=== PATIENT | female | born 1950 | race Caucasian/White ===

== ENCOUNTER 2018-10-06 13:44 | Day surgery (SDC) | payer MEDICARE, OTHER ==
[~2018-10-06] VITALS: Ht 163.8 cm; Wt 81.8 kg
[~2018-10-06 13:44] MED LIST: OXYC-138 PO
[2018-10-06 14:00] VITALS: BP 140/68
[2018-10-06] MEDS ORDERED: AMLO10TA PO (14:44)
[2018-10-06] MEDS ORDERED: TIZA4CAP PO (14:45)
[2018-10-06] MEDS ORDERED: BENA40TA73 PO (14:46)
[2018-10-06] MEDS ORDERED: CLON0.2T PO (14:46)
[2018-10-06] MEDS ORDERED: FLUO40CA10 PO (14:47)
[2018-10-06] MEDS ORDERED: HYDR-3972 PO (14:48)
[2018-10-06] MEDS ORDERED: CHOLESTEROL MED PO (14:49)
[2018-10-06] MEDS ORDERED: ASPI-12 PO (14:49)
[2018-10-06] MEDS ORDERED: glucagon, human recombinant 1mg kit ONE ×2 (15:18→15:19)
[2018-10-06] MEDS ORDERED: diphenhydrAMINE 50 mg/ml inj ONE (15:18)
[2018-10-06] MEDS ORDERED: LIDOcaine Viscous 15ml cup ONE (15:18)
[2018-10-06] MEDS ORDERED: fentaNYL/PF 50MCG/1 ML 2ML syringe ONE (15:18)
[2018-10-06] MEDS ORDERED: MIDAZolam 5mg/5ml vial ONE (15:18)
[2018-10-06] MEDS ORDERED: iohexol 300 MG/1 ML 50ml polymer ONE (15:19)
[2018-10-06 15:54] VITALS: BP 140/50
[2018-10-06 16:04] VITALS: BP 150/63
[2018-10-06 16:14] VITALS: BP 155/76
[2018-10-06 16:24] VITALS: BP 165/80
[2018-10-06 16:34] VITALS: BP 175/80
== END 2018-10-06 16:54 | disposition home or self-care (01) ==
LOC: GI LAB 13:44
PROVIDERS: ATTEND Internal Medicine Gastroenterology
DX: Z46.59 Encounter for fitting and adjustment of other gastrointestinal appliance and device (principal); K83.8 Other specified diseases of biliary tract; I10 Essential (primary) hypertension; F17.210 Nicotine dependence, cigarettes, uncomplicated; Z90.49 Acquired absence of other specified parts of digestive tract; Z72.89 Other problems related to lifestyle; Z86.69 Personal history of other diseases of the nervous system and sense organs; Z90.710 Acquired absence of both cervix and uterus; Z88.0 Allergy status to penicillin; Z88.5 Allergy status to narcotic agent; Z79.891 Long term (current) use of opiate analgesic; Z79.82 Long term (current) use of aspirin; Z79.899 Other long term (current) drug therapy; Z88.8 Allergy status to other drugs, medicaments and biological substances; Z98.890 Other specified postprocedural states
CPT/HCPCS: 43264; 43275; 74328; G0500; J1200; J1610; J2250; J3010; J7030; Q9967; 43276; 99152; 99153; A4620

== ENCOUNTER 2020-04-07 09:50 | Day surgery (SDC) | payer MEDICARE, MEDICAID ==
[~2020-04-07 09:50] MED LIST changes: +ATOR40TA PO; +CEFD300C3 PO; +DULO-31 PO; +HYDR-4069 PO; +HYDR-4383 PO; +LACT-228 PO; +MAGN64TA10 PO; +METO100T14 PO; +METR-159 PO; -OXYC-138 PO; +POTA20TA19 PO; +TIZA2TAB7 PO
[2020-04-07] MEDS ORDERED: LIDOcaine 2% 5ml jelly ONE (10:35)
== END 2020-04-07 12:13 | disposition home or self-care (01) ==
LOC: WOUND CARE 09:50
PROVIDERS: ATTEND Nurse Practitioner
DX: T81.89XA Other complications of procedures, not elsewhere classified, initial encounter (principal); I10 Essential (primary) hypertension; E78.5 Hyperlipidemia, unspecified; G89.4 Chronic pain syndrome; M54.9 Dorsalgia, unspecified; E87.1 Hypo-osmolality and hyponatremia; E87.6 Hypokalemia; F17.200 Nicotine dependence, unspecified, uncomplicated; F32.9 Major depressive disorder, single episode, unspecified; F41.9 Anxiety disorder, unspecified; Z90.49 Acquired absence of other specified parts of digestive tract; Z98.1 Arthrodesis status; Y92.238 Other place in hospital as the place of occurrence of the external cause; Y83.8 Other surgical procedures as the cause of abnormal reaction of the patient, or of later complication, without mention of misadventure at the time of the procedure
CPT/HCPCS: 97597

== ENCOUNTER 2020-04-13 09:50 | Day surgery (SDC) | payer MEDICARE, MEDICAID ==
[~2020-04-13 09:50] MED LIST changes: -METR-159 PO
[2020-04-13] MEDS ORDERED: LIDOcaine 2% 5ml jelly ONE (10:23)
== END 2020-04-13 11:33 | disposition home or self-care (01) ==
LOC: WOUND CARE 09:50
PROVIDERS: ATTEND Nurse Practitioner
DX: T81.89XD Other complications of procedures, not elsewhere classified, subsequent encounter (principal); L98.492 Non-pressure chronic ulcer of skin of other sites with fat layer exposed; I10 Essential (primary) hypertension; E78.5 Hyperlipidemia, unspecified; G89.4 Chronic pain syndrome; M54.9 Dorsalgia, unspecified; E87.1 Hypo-osmolality and hyponatremia; E87.6 Hypokalemia; F17.200 Nicotine dependence, unspecified, uncomplicated; F32.9 Major depressive disorder, single episode, unspecified; F41.9 Anxiety disorder, unspecified; Z90.49 Acquired absence of other specified parts of digestive tract; Z98.1 Arthrodesis status; Y83.8 Other surgical procedures as the cause of abnormal reaction of the patient, or of later complication, without mention of misadventure at the time of the procedure
CPT/HCPCS: 97597

== ENCOUNTER 2020-04-28 15:04 | Emergency (ER) | payer MEDICARE, MEDICAID ==
[~2020-04-28] VITALS: Ht 134.6 cm; Wt 62.3 kg
[2020-04-28 17:48] LABS: BASOPHILS # (AUTO) 0.1 X10'3 (0-0.2); BASOPHILS % (AUTO) 0.7 % (0-1); EOSINOPHILS # (AUTO) 0.2 X10'3 (0-0.9); EOSINOPHILS % (AUTO) 2.4 % (0-6); HEMATOCRIT 34.8 % (35.0-45.0); HEMOGLOBIN 11.5 g/dl (12.0-16.0); LYMPHOCYTES # (AUTO) 3.4 X10'3 (1.1-4.8); LYMPHOCYTES % (AUTO) 32.6 % (21-51); MEAN CORPUSCULAR HEMOGLOBIN 28.8 PG (27.0-31.0); MEAN CORPUSCULAR HGB CONC 33.2 g/dL (33.0-36.5); MEAN CORPUSCULAR VOLUME 86.9 FL (78-98); MONOCYTES # (AUTO) 0.7 X10'3 (0-0.9); NEUTROPHILS % (AUTO) 57.3 % (42-75); PLATELET COUNT 412 X10'3 (140-440); RED CELL DISTRIBUTION WIDTH 16.6 % (11.5-14.5); WHITE BLOOD COUNT 10.5 X10'3 (4.5-11.0)
[2020-04-28 17:50] VITALS: BP 140/79
[2020-04-28 18:02] LABS: ALANINE AMINOTRANSFERASE 20 U/L (12-78); ALBUMIN 3.5 G/DL (3.4-5.0); ALBUMIN/GLOBULIN RATIO 0.9 (1.1-1.5); ALKALINE PHOSPHATASE 74 IU/L (46-116); ANION GAP 5 (8-16); ASPARTATE AMINO TRANSFERASE 12 U/L (10-37); BILIRUBIN,TOTAL 0.2 MG/DL (0.1-1.0); BLOOD UREA NITROGEN 29 MG/DL (7-18); BUN/CREATININE RATIO 32.6 (6.6-38.0); CALCIUM 9.3 MG/DL (8.5-10.1); CHLORIDE 99 MMOL/L (99-107); CREATININE 0.89 MG/DL (0.40-0.90); GLUCOSE 90 MG/DL (70-104); LIPASE 113 U/L (73-393); POTASSIUM 4.2 MMOL/L (3.5-5.1); SODIUM 132 MMOL/L (135-145); TOTAL CARBON DIOXIDE 27.6 MMOL/L (24-32); TOTAL PROTEIN 7.6 G/DL (6.4-8.2); eGFR 63 ML/MIN
[2020-04-28 18:08] LABS: CLARITY,URINE SLIGHTLY CLOUDY (Clear); COLOR,URINE YELLOW (Yellow); GLUCOSE, URINE NEGATIVE (Neg); KETONES,URINE NEGATIVE (Neg); LEUKOCYTE ESTERASE ,URINE TRACE (Neg); NITRITES, URINE NEGATIVE (Neg); OCCULT BLOOD,URINE NEGATIVE (Neg); PROTEIN,URINE NEGATIVE (Neg); UROBILINOGEN,URINE 0.2 E.U/dL (0.2-1.0)
[2020-04-28 18:09] LABS: UA COLLECTION TYPE CLN CATCH MIDSTREAM
[2020-04-28 18:18] LABS: SQUAMOUS EPITHELIAL CELL,UR MANY /LPF (FEW)
[2020-04-28 18:19] LABS: BACTERIA,URINE FEW /HPF (Neg); RBC,URINE 0-2 /HPF (0-2)
[2020-04-28 18:20] LABS: HYALINE CASTS 0-3 /LPF (NEGATIVE)
== END 2020-04-28 18:53 | disposition home or self-care (01) ==
LOC: ER 15:05
DX: R10.819 Abdominal tenderness, unspecified site (principal); R42 Dizziness and giddiness; I10 Essential (primary) hypertension; Z98.890 Other specified postprocedural states; Z88.0 Allergy status to penicillin; Z88.5 Allergy status to narcotic agent; Z88.8 Allergy status to other drugs, medicaments and biological substances; Z79.899 Other long term (current) drug therapy
CPT/HCPCS: 36415; 80053; 81001; 83690; 85025; 99283

== ENCOUNTER 2020-05-19 10:05 | Day surgery (SDC) | payer MEDICARE, MEDICAID ==
[~2020-05-19 10:05] MED LIST changes: -CEFD300C3 PO
[2020-05-19] MEDS ORDERED: LIDOcaine 2% 5ml jelly ONE (10:34)
== END 2020-05-19 11:22 | disposition home or self-care (01) ==
LOC: WOUND CARE 10:05
PROVIDERS: ATTEND Nurse Practitioner
DX: T81.89XD Other complications of procedures, not elsewhere classified, subsequent encounter (principal); L98.492 Non-pressure chronic ulcer of skin of other sites with fat layer exposed; I10 Essential (primary) hypertension; F41.9 Anxiety disorder, unspecified; E78.5 Hyperlipidemia, unspecified; F32.9 Major depressive disorder, single episode, unspecified; J18.9 Pneumonia, unspecified organism; Z90.49 Acquired absence of other specified parts of digestive tract; Z88.0 Allergy status to penicillin; Z88.5 Allergy status to narcotic agent; Z88.8 Allergy status to other drugs, medicaments and biological substances; Z79.899 Other long term (current) drug therapy; Y83.8 Other surgical procedures as the cause of abnormal reaction of the patient, or of later complication, without mention of misadventure at the time of the procedure
CPT/HCPCS: 97597

== ENCOUNTER 2020-05-26 10:09 | Day surgery (SDC) | payer MEDICARE, MEDICAID ==
[2020-05-26] MEDS ORDERED: LIDOcaine 2% 5ml jelly ONE (10:24)
== END 2020-05-26 11:23 | disposition home or self-care (01) ==
LOC: WOUND CARE 10:09
PROVIDERS: ATTEND Nurse Practitioner
DX: T81.89XD Other complications of procedures, not elsewhere classified, subsequent encounter (principal); L98.492 Non-pressure chronic ulcer of skin of other sites with fat layer exposed; I10 Essential (primary) hypertension; F41.9 Anxiety disorder, unspecified; E78.5 Hyperlipidemia, unspecified; F32.9 Major depressive disorder, single episode, unspecified; F17.200 Nicotine dependence, unspecified, uncomplicated; J18.9 Pneumonia, unspecified organism; Z88.0 Allergy status to penicillin; Z88.8 Allergy status to other drugs, medicaments and biological substances; Z79.899 Other long term (current) drug therapy; Z90.49 Acquired absence of other specified parts of digestive tract; Z88.5 Allergy status to narcotic agent; Y83.8 Other surgical procedures as the cause of abnormal reaction of the patient, or of later complication, without mention of misadventure at the time of the procedure
CPT/HCPCS: 97597

== ENCOUNTER 2020-06-02 11:41 | Day surgery (SDC) | payer MEDICARE, MEDICAID ==
[2020-06-02] MEDS ORDERED: LIDOcaine 2% 5ml jelly ONE (12:50)
== END 2020-06-02 13:48 | disposition home or self-care (01) ==
LOC: WOUND CARE 11:41
PROVIDERS: ATTEND Nurse Practitioner
DX: T81.89XD Other complications of procedures, not elsewhere classified, subsequent encounter (principal); L98.492 Non-pressure chronic ulcer of skin of other sites with fat layer exposed; I10 Essential (primary) hypertension; F41.9 Anxiety disorder, unspecified; E78.5 Hyperlipidemia, unspecified; F32.9 Major depressive disorder, single episode, unspecified; F17.200 Nicotine dependence, unspecified, uncomplicated; J18.9 Pneumonia, unspecified organism; Z79.899 Other long term (current) drug therapy; Z90.49 Acquired absence of other specified parts of digestive tract; Z88.5 Allergy status to narcotic agent; Y83.8 Other surgical procedures as the cause of abnormal reaction of the patient, or of later complication, without mention of misadventure at the time of the procedure
CPT/HCPCS: 97597

== ENCOUNTER 2020-06-09 12:00 | Day surgery (SDC) | payer MEDICARE, MEDICAID ==
[2020-06-09] MEDS ORDERED: LIDOcaine 2% 5ml jelly ONE (13:10)
== END 2020-06-09 13:41 | disposition home or self-care (01) ==
LOC: WOUND CARE 12:00
PROVIDERS: ATTEND Nurse Practitioner
DX: T81.89XD Other complications of procedures, not elsewhere classified, subsequent encounter (principal); L98.492 Non-pressure chronic ulcer of skin of other sites with fat layer exposed; I10 Essential (primary) hypertension; F41.9 Anxiety disorder, unspecified; E78.5 Hyperlipidemia, unspecified; F32.9 Major depressive disorder, single episode, unspecified; F17.200 Nicotine dependence, unspecified, uncomplicated; J18.9 Pneumonia, unspecified organism; Z79.899 Other long term (current) drug therapy; Z90.49 Acquired absence of other specified parts of digestive tract; Z88.5 Allergy status to narcotic agent; Y83.8 Other surgical procedures as the cause of abnormal reaction of the patient, or of later complication, without mention of misadventure at the time of the procedure
CPT/HCPCS: 97597

== ENCOUNTER 2020-06-16 12:45 | Outpatient (CLI) | payer MEDICARE, MEDICAID | END 2020-06-16 13:00 | disposition home or self-care (01) | LOC: WOUND CARE 12:45 | PROVIDERS: ATTEND Nurse Practitioner | DX: T81.89XD Other complications of procedures, not elsewhere classified, subsequent encounter (principal); L98.492 Non-pressure chronic ulcer of skin of other sites with fat layer exposed; I10 Essential (primary) hypertension; E78.5 Hyperlipidemia, unspecified; F41.9 Anxiety disorder, unspecified; F32.9 Major depressive disorder, single episode, unspecified; F17.200 Nicotine dependence, unspecified, uncomplicated; Z79.899 Other long term (current) drug therapy; Z90.49 Acquired absence of other specified parts of digestive tract; Y83.8 Other surgical procedures as the cause of abnormal reaction of the patient, or of later complication, without mention of misadventure at the time of the procedure | CPT/HCPCS: G0463 ==

== ENCOUNTER 2020-07-04 13:40 | Day surgery (SDC) | payer MEDICARE, MEDICAID ==
[2020-07-04] MEDS ORDERED: LIDOcaine 2% 5ml jelly ONE (13:55)
== END 2020-07-04 14:35 | disposition home or self-care (01) ==
LOC: WOUND CARE 13:40
PROVIDERS: ATTEND Nurse Practitioner Family
DX: T81.89XD Other complications of procedures, not elsewhere classified, subsequent encounter (principal); L98.492 Non-pressure chronic ulcer of skin of other sites with fat layer exposed; I10 Essential (primary) hypertension; E78.5 Hyperlipidemia, unspecified; F41.9 Anxiety disorder, unspecified; F32.9 Major depressive disorder, single episode, unspecified; F17.200 Nicotine dependence, unspecified, uncomplicated; Z79.899 Other long term (current) drug therapy; Z90.49 Acquired absence of other specified parts of digestive tract; Y83.8 Other surgical procedures as the cause of abnormal reaction of the patient, or of later complication, without mention of misadventure at the time of the procedure
CPT/HCPCS: 97597

== ENCOUNTER 2020-07-12 11:49 | Outpatient (CLI) | payer MEDICARE, MEDICAID | END 2020-07-12 23:59 | disposition home or self-care (01) | LOC: WOUND CARE 11:49 | PROVIDERS: ATTEND Nurse Practitioner | DX: T81.89XD Other complications of procedures, not elsewhere classified, subsequent encounter (principal); L98.492 Non-pressure chronic ulcer of skin of other sites with fat layer exposed; I10 Essential (primary) hypertension; E78.5 Hyperlipidemia, unspecified; F41.9 Anxiety disorder, unspecified; F32.9 Major depressive disorder, single episode, unspecified; F17.200 Nicotine dependence, unspecified, uncomplicated; Z79.899 Other long term (current) drug therapy; Z90.49 Acquired absence of other specified parts of digestive tract; Y83.8 Other surgical procedures as the cause of abnormal reaction of the patient, or of later complication, without mention of misadventure at the time of the procedure | CPT/HCPCS: G0463 ==

== ENCOUNTER 2023-09-19 17:02 | Emergency (ER) | payer BC, MEDICAID ==
[~2023-09-19] VITALS: Ht 162.6 cm; Wt 63.6 kg
[~2023-09-19 17:02] MED LIST changes: +POTA-207 PO; -POTA20TA19 PO; +TIZA-189 PO; -TIZA2TAB7 PO
[2023-09-19 17:15] VITALS: TEMP 99.2
[2023-09-19 18:42] LABS: BASOPHILS # (AUTO) 0.1 X10'3 (0-0.2); BASOPHILS % (AUTO) 0.9 % (0-1); EOSINOPHILS # (AUTO) 0.1 X10'3 (0-0.9); HEMOGLOBIN 13.7 g/dl (12.0-16.0); LYMPHOCYTES % (AUTO) 24.2 % (21-51); MEAN CORPUSCULAR HEMOGLOBIN 30.9 PG (27.0-31.0); MEAN CORPUSCULAR HGB CONC 34.2 g/dL (33.0-36.5); MEAN CORPUSCULAR VOLUME 90.3 FL (78-98); MEAN PLATELET VOLUME 7.5 FL (7.4-10.4); MONOCYTES % (AUTO) 8.2 % (2-12); NEUTROPHILS # (AUTO) 8.1 X10'3 (1.8-7.7); NEUTROPHILS % (AUTO) 65.7 % (42-75); PLATELET COUNT 357 X10'3 (140-440); RED BLOOD COUNT 4.43 X10'6 (4.20-5.60); RED CELL DISTRIBUTION WIDTH 12.8 % (11.5-14.5); WHITE BLOOD COUNT 12.4 X10'3 (4.5-11.0)
[2023-09-19 19:15] LABS: ALANINE AMINOTRANSFERASE 27 U/L (12-78); ALBUMIN 3.5 G/DL (3.4-5.0); ALBUMIN/GLOBULIN RATIO 0.9 (1.1-1.5); ALKALINE PHOSPHATASE 77 IU/L (46-116); ANION GAP 6 (8-16); ASPARTATE AMINO TRANSFERASE 23 U/L (10-37); BILIRUBIN,TOTAL 0.4 MG/DL (0.1-1.0); BLOOD UREA NITROGEN 31 MG/DL (7-18); BUN/CREATININE RATIO 21.7 (10.0-20.0); CALCIUM 10.1 MG/DL (8.5-10.1); CHLORIDE 99 MMOL/L (99-107); CREATININE 1.43 MG/DL (0.40-0.90); GLUCOSE 143 MG/DL (70-104); SODIUM 138 MMOL/L (135-145); TOTAL CARBON DIOXIDE 32.9 MMOL/L (24-32); TOTAL PROTEIN 7.2 G/DL (6.4-8.2); eCRCL 30 ML/MIN; eGFR 36 ML/MIN
[2023-09-19 19:24] LABS: PRO BRAIN NATRIURETIC PEPTIDE 987 PG/ML (0-125)
[2023-09-19] MEDS ORDERED: potassium Cl 20 mEq SR tablet PO STA (22:47)
[2023-09-19] MEDS ORDERED: AZIT-164 PO ×2 (22:48→23:37)
[2023-09-19] MEDS ORDERED: azithromycin 250mg tablet PO ONE (22:50)
[2023-09-19 23:43] VITALS: BP 145/64; PULSE 60; RESP 16; O2SAT 97
== END 2023-09-19 23:40 | disposition home or self-care (01) ==
LOC: ER 17:02
DX: R05.9 Cough, unspecified (principal); E87.6 Hypokalemia; I48.91 Unspecified atrial fibrillation; I10 Essential (primary) hypertension; G89.29 Other chronic pain; Z86.73 Personal history of transient ischemic attack (TIA), and cerebral infarction without residual deficits; Z79.899 Other long term (current) drug therapy; Z88.0 Allergy status to penicillin; Z88.5 Allergy status to narcotic agent; Z88.8 Allergy status to other drugs, medicaments and biological substances
CPT/HCPCS: 36415; 71046; 80053; 83605; 83880; 85025; 87040; 99284